=== PATIENT | male | born 1945 | race Caucasian/White ===

== ENCOUNTER 2023-08-04 23:30 | Emergency (ER) | payer BC, OTHER ==
[~2023-08-04] VITALS: Ht 180.3 cm; Wt 97.5 kg
[~2023-08-04 23:30] MED LIST: APIX2.5T PO; CARV25TA55 PO; OMEG300C3 PO; SIMV-343 PO
[2023-08-04 23:36] VITALS: BP_SYST 141; PULSE 78; RESP 20; TEMP 98.9; O2SAT 94
[2023-08-04] MEDS: IPRATROPIUM/ALBUTEROL SULFATE 3 ML AMPUL.NEB (DUONEB) INH ONE (23:57)
[2023-08-05] MEDS: predniSONE 20 MG TABLET PO ONE (00:52)
[2023-08-05 00:55] LABS: BASOPHILS % (AUTO) 0.1 % (0.0-2.0); HEMOGLOBIN 14.9 g/dL (14.0-18.0); LYMPHOCYTES # (AUTO) 0.7 K/uL (1.0-5.5); LYMPHOCYTES % (AUTO) 10.2 % (20.5-51.5); MEAN CORPUSCULAR HEMOGLOBIN 30 pg (27-31); MEAN CORPUSCULAR HGB CONC 35 % (32-36); MEAN CORPUSCULAR VOLUME 86 fL (79.0-98.0); MONOCYTES % (AUTO) 14.6 % (1.7-9.3); NEUTROPHILS # (AUTO) 4.9 K/uL (1.8-7.7); NEUTROPHILS % (AUTO) 75.1 % (40.0-70.0); PLATELET COUNT (AUTO) 124 K/uL (130-430); RED BLOOD CELL COUNT(AUTO) 4.99 MIL/uL (4.2-6.2); RED CELL DISTRIBUTION WIDTH 13.8 % (9.0-15.0); WHITE BLOOD COUNT (AUTO) 6.5 K/uL (4.8-10.8)
[2023-08-05 01:11] LABS: ANION GAP 10 (5-15); CARBON DIOXIDE 24 mmol/L (23-29); CHLORIDE 108 mmol/L (98-107); CREATININE 1.39 mg/dL (0.55-1.30); GLUCOSE 139 mg/dL (74-106); POTASSIUM 3.8 mmol/L (3.5-5.1); SODIUM SERUM 142 mmol/L (136-145); UREA NITROGEN, BLOOD 20 mg/dL (8-21)
[2023-08-05] MEDS ORDERED: METH-776 PO (01:37)
[2023-08-05] MEDS ORDERED: CEFU250T85 PO (01:37)
[2023-08-05] MEDS ORDERED: ALBMDI INH (01:37)
[2023-08-05] MEDS ORDERED: LIDOCAINE 1%, 20 ML MDV 20 ML ONE (01:38)
[2023-08-05 01:39] LABS: INFLUENZA TYPE B NEGATIVE (NEGATIVE)
[2023-08-05] MEDS: cefTRIAXone 1 GM VIAL IM ONE (01:43)
[2023-08-05 01:46] LABS: INFLUENZA TYPE A POSITIVE (NEGATIVE)
[2023-08-05] MEDS ORDERED: OSEL75CA PO (01:47)
[2023-08-05 01:53] VITALS: BP_SYST 141; PULSE 78; RESP 20; TEMP 98.9; O2SAT 92
== END 2023-08-05 01:53 | disposition home or self-care (01) ==
LOC: SED 23:30
DX: J18.9 Pneumonia, unspecified organism (principal); R05.9 Cough, unspecified; R09.89 Other specified symptoms and signs involving the circulatory and respiratory systems; I10 Essential (primary) hypertension; Z79.899 Other long term (current) drug therapy; Z20.822 Contact with and (suspected) exposure to COVID-19
CPT/HCPCS: 99284; 71045; 87426; 80048; 85025; 36415; 94640; 87804 ×2; 96372; J7512; J0696; J2001